=== PATIENT | female | born 1950 ===

== ENCOUNTER 2025-01-07 09:25 | Outpatient (REF) | payer MEDICARE, SELFPAY ==
--- OUTSIDE RECORDS SUMMARY | 2025-01-07 10:08 | XMS_ITS | Clinical Summary ---
Author Organization [facility] Address [address] [place] [address] Phone Care Team Providers Care Inside Finisher Name Role Phone George Flaherty MD Primary Care Provider Allergies Active Allergy Reactions Criticality Noted Date Comments Amoxicillin-Pot Clavulanate Diarrhea 10/07/19 21 Cephalexin Hives High 06/22/2021 Levofloxacin Itching High 06/18/2024 Medroxyprogesterone Wheezing 05/10/2022 Oxycodone-Acetaminophen Nausea And Vomiting 07/2021 Oxycodone-Aspirin Dizziness 10/07/2020 Penicillins Swelling,Rash High 05/18/2024 Sulfamethoxazole-Trimethoprim Anaphylaxis High 06/22 Medications nitrofurantoin (MACRODANTIN) 100 mg capsule Take 1 capsule (100 mg total) by mouth 1 (one) time each day. Active nitroglycerin (NITROSTAT) 0.[address] 1 tablet (0.4 mg total) under the tongue. 023 Active zinc gluconate 50 mg tablet Take 1 tablet (50 mg total) by mouth 1 (one) time each day. Active vit C/E/Zn/coppr/lute in/zeaxan (PRESERVISION AREDS-2 ORAL) Take 1 capsule by mouth 2 (two) times a day. Active ketoconazole (NIZORAL) 2 % cream 1 Application 1 (one) time each day if needed. 022 Active trospium (SANCTURA) 20 mg tablet Take 1 tablet (20 mg total) by mouth 2 (two) times a day. Active cholecalciferol, vitamin D3, (VITAMIN D3 ORAL) Take 25 mcg by mouth 1 (one) time each day. Active estradioL (ESTRACE) 0.01 % (0.1 mg/gram) vaginal cream 0.01 g 1 (one) time each day. Active loratadine (CLARITIN) 10 mg tablet Take 1 tablet (10 mg total) by mouth 1 (one) time each day. Take 1 Tablet by mouth daily. - Oral Active acetaminophen (TYLENOL) 500 mg tablet Take 2 tablets (1,000 mg total) by mouth every 8 (eight) hours. 42 tablet 024 Active metoprolol succinate (TOPROL-XL) 50 mg 24 hr tablet TAKE 1 TABLET BY MOUTH DAILY 90 tablet 1 025 Active atorvastatin (LIPITOR) 80 mg tablet Take 1 tablet (80 mg total) by mouth at bedtime. 90 tablet 025 Active amLODIPine (NORVASC) 5 mg tablet TAKE 1 TABLET BY MOUTH DAILY 90 tablet 1 025 Active EPINEPHrine (EpiPen 2-Romaine) 0.3 mg/0.3 mL injection Inject 0.3 mL (0.3 mg total) into the thigh if needed for anaphylaxis. 1 each 1 025 Active furosemide (LASIX) 20 mg tablet TAKE 1 TABLET BY MOUTH DAILY 90 tablet 1 025 Active potassium chloride (KLOR-CON M20) 20 mEq CR tablet TAKE 1 TABLET BY MOUTH DAILY 30 tablet 025 Active potassium chloride 20 mEq tablet extended release Take 1 mEq by mouth 1 (one) time each day. 023 2024 Discontinued furosemide (LASIX) 20 mg tablet Take 1 mg by mouth 1 (one) time each day. 024 2024 Discontinued meclizine (ANTIVERT) 12.5 mg tablet Take 1 Tablet by mouth 2 times daily as needed for Other. 023 2024 Discontinued psyllium (METAMUCIL) 3.4 gram packet Take by mouth. 2024 Discontinued EPINEPHrine (EpiPen 2-Romaine) 0.3 mg/0.3 mL injection Inject 0.3 mg into the muscle as needed. 021 2024 Discontinued(R eorder) sodium chloride (AYR) 0.65 % nasal drops Administer 2 drops into each nostril every 2 (two) hours if needed. 020 2024 Discontinued CRANBERRY ORAL Take 1 tablet by mouth 1 (one) time each day. 2024 Discontinued ondansetron ODT (ZOFRAN-ODT) 4 mg disintegrating tablet Dissolve 1 tablet (4 mg total) on top of the tongue every 8 (eight) hours if needed for nausea or vomiting. 14 tablet 024 2024 Discontinued pantoprazole (PROTONIX) 40 mg EC tablet TAKE 1 TABLET BY MOUTH TWICE DAILY 180 tablet 1 025 2024 Discontinued Active Problems Problem Noted Date Diagnosed Date Encounter for surgical after care following surgery of digestive system 08/21/2024 Encounter for change or removal of drains 2023 History of fall 08/21/2024 Personal history of urinary tract infection 07/27 S/P repair of paraesophageal hernia 07/02/2024 Bilateral carotid bruits 05/26/2024 Abnormal nuclear stress test 03/17/2024 Other chest pain 02/17/2024 Abnormal findings on diagnostic imaging of abdom en 10/18/2023 Chronic idiopathic constipation 10/18/2023 Mixed stress and urge urinary incontinence 05/13 Tachycardia 02/22/2023 Lymphedema 10/24/2021 Hypertension 07/04/2021 Overview (05/26/2024): Last Assessment & Plan: On the high end of normal, we are completing a 24-hour Holter monitor and may initiate a beta-yashira Aortic valve stenosis 01/05/2021 Overview (05/26/2024): Last Assessment & Plan: Only mild on echo. She believes her shortness of breath has improved. I did review signs of worsening stenosis and what to look for.We will update an echo around the 1 year annemarie. Atherosclerosis of [place] co ronary artery of [place] heart without angina pectoris 01/05/2021 Overview (05/26/2024): Last Assessment & Plan: Feeling well, her dyspnea has improved, no further interventions at this time. Continue ASA, CCB. She is updating labs as below, plan to initiate statin. Also may be starting BB as below. 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 [facility] Polysomnogram PAP treatment study. Date 12/28/2020. Wt 225#; BMI 43; SE 38 % SM 86 %; spent 19 % of the study in REM. On CPAP @ 8; RDI 3.8 (AHI 3.8), Central apneas 1; Obstructive apneas 0; Mixed apneas 0; hypopneas 6; RERAs 0; and, average oxygen saturation was 92%. For the entire study, PLMs ~0. 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 Back pain 08/10/2020 Bronchitis 08/10/2020 Dizziness 08/10/2020 Dyspnea on exertion 08/10/2020 Hiatal hernia with GERD 08/10/2020 Overview (12/10/2024): S/p repair in June 2024 Hyperlipidemia 08/10/2020 Overview (05/26/2024): Last Assessment & Plan: Update labs Migraine 08/10/2020 Morbid obesity due to excess calories ([facility] V24, [facility] V28) 08/10/2020 Resolved Problems Problem Noted Date Diagnosed Date Resolved Date Gastroesophageal reflux dise ase without esophagitis 08/21/2024 12/10/2024 Encounters Date Type Department Care Team Description 12/10/2024 1:00 PM EDT Office Visit Adult Medicine [address] [phone] George Flaherty MD Lymphedema (Primary Dx); Hiatal hernia with GERD; Hypertension, unspecified type; Morbid obesity due to excess calories ([facility] V24, [facility] V28); S/P repair of paraesophageal hernia; Atherosclerosis of [place] coronary artery of [place] heart without angina pectoris; Hyperlipidemia, unspecified hyperlipidemia type; Bilateral hearing loss, unspecified hearing loss type; Screening for diabetes mellitus (DM); Need for hepatitis C screening test 10/26/2024 Telephone [facility] Cardiology [facility] [address] [facility] [address] [place] [address] MD atorvastatin (LIPITOR) 80 mg tablet (atorvastatin (LIPITOR) 80 mg tablet ) 10/22/2024 Telephone [facility] - [facility] [address] [facility] [address] [place] [address] Michelle Voss MA Med Refill 10/20/2024 10:45 AM EST Office Visit General Surgery - [place] [address] [facility] [address] [place] [address] Eduardo Centeno MD Hiatal hernia with GERD (Primary Dx) from Last 3 Months Immunizations Name Administration Dates Next Due Influenza Quadravalent, MDCK , 0.5ml, preservative free (Flucelvax) 6mo and older 05/13/2023,05/10/2022 Pneumococcal conjugate 13 va lent (Prevnar 13, PCV13) 2mo and older 05/10/2020 Pneumococcal conjugate 20 va lent (Prevnar 20, PCV 20) 2mo and older 11/05/2023 Td Tetanus diptheria (Tdvax) 7yo and older 12/09 Surgical History Surgery Date Site/Laterality Comments HYSTERECTOMY TONSILLECTOMY CATARACT EXTRACTION Bilateral HERNIA REPAIR Medical History Medical History Date Comments Hyperlipidemia Hypertension Irregular heart beat Heart disease Angina pectoris ([facility] V24) Sleep apnea Dysphagia Hiatal hernia with GERD Diverticulosis Anemia History of transfusion Dizziness Neuromuscular disorder ([facility] V24, [facility] V28 ) Neuropathy Arthritis Joint pain Motion sickness Cancer ([facility] V24, [facility] V28) Uterine cancer ([facility] V24, [facility] V28) Macular degeneration disease Tinnitus of right ear Carotid artery disease ([facility] V24) RIGHT Arrhythmia Shortness of breath Dental disease Gastroesophageal reflux disease without esophagi tis 08/21/2024 Social History Tobacco Use Types Packs/Day Years Used Date Smoking Tobacco: Never Passive Smoke Exposure: Never Tobacco Cessation:Counseling Given: No Alcohol Use Standard Drinks/Week Comments Never 0 (1 standard drink = 0.6 oz pur e alcohol) Housing Instability Answer Date Recorde d Are you worried that in the next 2 months you may not have stable housing? No 12/07/2024 Food Access & Nutrition Answer Date Rec orded Do you have access to a vari ety of food including fruits and vegetables? Yes 12/07/2024 Access to Healthcare Answer Date Record ed Within the last 3 months, ho w many times did you visit the emergency department for your medical care? 0 12/07/2024 Health Literacy Answer Date Recorded How often do you need to hav e someone help you when you read instructions, pamphlets, or other written material from your doctor or pharmacy? Never 12/07/2024 Caregiver: How often do you need to have someone help you when you read instructions, pamphlets, or other written material from your doctor or pharmacy? Not on file 12/07/2024 Financial Risk Answer Date Recorded How hard is it for you to pa y for the very basics like food, housing, medical care, and air conditioning / heating? Hard 12/07/2024 Transportation Answer Date Recorded Has the lack of transportati on kept you from meetings, work, or from getting things needed for daily living? No Has the lack of transportati on kept you from medical appointments or from getting medications? No 12/07/2024 Social Isolation Answer Date Recorded How often do you feel lonely or isolated from th ose around you? Rarely 12/07/2024 Food Risk Answer Date Recorded Within the past 12 months we worried whether our food would run out before we got money to buy more. Never true 12/07/2024 Within the past 12 months th e food we bought just didn't last and we didn't have money to get more. Never true 12/07/2024 Dependent Care Answer Date Recorded Do you need help finding or paying for care for your loved ones. For example, children's service worker or elderly care for an older adult? No 12/07/2024 Education Answer Date Recorded Do you think completing more education or training, like finishing a GED, going to college, or learning a trade, would be helpful for you? N/A 12/07/2024 Employment and Income Answer Date Recor ded During the last four weeks, have you been actively looking for work? No 12/07/2024 Living Situation Answer Date Recorded What is your living situation? 0 12/07/2024 Interpersonal Safety Answer Date Record ed Physical Abuse 07/02/2024 Verbal Abuse 07/02/2024 Comments Unknown Sex and Gender Information Value Date Recorded Sex Assigned at Female 07/02/2024 11:06 AM EST Legal Sex Female 11:45 AM EST Gender Identity Female 07/02/2024 11:06 AM EST Sexual Orientation Straight 07/02/2024 11 :06 AM EST Obstetrics History Last Filed Vital Signs Vital Sign Reading Time Taken Comments Blood Pressure 128/82 12/10/2024 12:59 PM EDT Pulse 84 12/10/2024 12:59 PM EDT Temperature 36.9 ??C (98.4 ??F) 12/10/2024 12:59 PM E DT Respiratory Rate 17 07/04/2024 8:20 AM EST Oxygen Saturation 97% 12/10/2024 12:59 PM EDT Inhaled Oxygen Concentration - - Weight 102 kg (224 lb) 12/10/2024 12:59 PM EDT Height 147.3 cm (4' 10 ) 12/10/2024 12:59 PM EDT Body Mass Index 46.82 12/10/2024 12:59 PM EDT Plan of Treatment Upcoming Encounters Date Type Department Care Team (Late st Contact Info) Description 01/12/2025 3:00 PM EDT Office Visit Adult Medicine [facility] [address] [place] [phone] George Flaherty MD [address] [place] [address] 02/04/2025 10:00 AM EDT [facility] [address] [place] [phone] Robyn Treviño, OTR/L 05/28/2025 1:10 PM EDT Office Visit [facility] - [facility] [address] [facility] [address] [place] [phone] Karlie Rose NP [address] [facility] [address] [place] [address] 09/21/2025 10:15 AM EST Office Visit General Surgery - [place] [address] [phone] Eduardo Centeno MD 175 [facility] [address] [place] [address] Health Maintenance Due Date Last Done Comments Zoster Vaccines (1 of 2) 1998 COVID-19 Vaccine (3 - Moderna risk series) 12/18/2020 11/20/2020, 10/21/2020 Medicare Annual Wellness Visit 08/04/2022 Osteoporosis Screening (Bone Density Screening) 08/04/2022 RSV Immunization Adult Patients (1 - 1-dose 75+ series) 2023 Falls Risk Assessment 07/04/2025 07/04/2024 Depression Screening 12/07/2025 12/07/2024 Social Influencers of Health Screening 12/07/2025 12/07/2024 Hypertension/CHF/CAD Annual BMP Blood Test 01/05/2026 01/05/2025, 07/03/2024, 06/09/2024, Additional history exists Cholesterol Screening (Lipid Panel) 01/05/2030 01/05/2025, 05/15/2023 DTaP,Tdap,and Td Vaccines (2 - Td or Tdap) 12/09/2033 12/10/2023 Pneumococcal Vaccine: 50+ Years Completed 11/05/2023, 05/10/2020 Influenza Vaccine Completed 06/11/2024, , 05/10/2022, Additional history exists Hepatitis C Screening Completed 01/05/2025 HIB Vaccines Aged Out No longer eligi ble based on patient's age to complete this topic HPV Vaccines Aged Out No longer eligi ble based on patient's age to complete this topic Hepatitis A Vaccines Aged Out No long er eligible based on patient's age to complete this topic Hepatitis B Vaccines Aged Out No long er eligible based on patient's age to complete this topic IPV Vaccines Aged Out No longer eligi ble based on patient's age to complete this topic MMR Vaccines Aged Out No longer eligi ble based on patient's age to complete this topic Meningococcal ACWY Vaccine Aged Out N o longer eligible based on patient's age to complete this topic Meningococcal B Vaccine Aged Out No l onger eligible based on patient's age to complete this topic RSV Immunization Patients Under 20 months Aged Out No longer eligible based on patient's age to complete this topic Varicella Vaccines Aged Out No longer eligible based on patient's age to complete this topic Medical Devices Implanted Type Area [employer] Device Identifier Shelf Expiration Date Model / Serial / Lot Tissue Reinf Bio-A Abs 7x10cm - [id number] - [id number] Implanted:Qty: 1 on 07/02/2024 by Eduardo Centeno MD at [facility] Surgical Mesh Sling Implants N/A: Abdomen [employer] 2026 [id number] / [id number] / N/A Procedures Procedure Name Priority Date/Time Associated Diagnosis Comments CBC WITH AUTO DIFFERENTIAL Routine 01/05/2025 10:02 AM EDT Hypertension, unspecified type URINALYSIS MICROSCOPIC ONLY Routine 01/05/2025 10:02 AM EDT Urinary tract infection, site not specified CBC AND DIFFERENTIAL Routine 01/05/2025 10:02 AM EDT Hypertension, unspecified type COMPREHENSIVE METABOLIC PANEL Routine 01/05/2025 10:02 AM EDT Hypertension, unspecified type HEMOGLOBIN A1C Routine 01/05/2025 10:02 AM EDT Screening for diabetes mellitus (DM) LIPID PANEL WITH REFLEX TO DIRECT LDL Routine 01/05/2025 10:02 AM EDT Hypertension, unspecified type URINALYSIS MICROSCOPIC ONLY Routine 01/05/2025 10:02 AM EDT Urinary tract infection, site not specified HEPATITIS C ANTIBODY Routine 01/05/2025 10:02 AM EDT Need for hepatitis C screening test CULTURE URINE Routine 01/05/2025 10:02 AM EDT Urinary tract infection, site not specified from Last 3 Months Results * (ABNORMAL) Urinalysis microscopic only (01/05/2025 10:02 AM EDT) RBC, Urine 3 0 - 4 /HPF LAB URINALYSIS - AUTOMATED METHOD 01/05/2025 1:43 PM EDT [facility] WBC, Urine 184.1(H) 0 - 4 /HPF LAB URINALYSIS - AUTOMATED METHOD 01/05/2025 1:43 PM EDT [facility] Squamous Epithelial, Urine 25 0 - 60 /LPF LAB URINALYSIS - AUTOMATED METHOD 01/05/2025 1:43 PM EDT [facility] Bacteria, Urine Moderate( A) Negative /HPF LAB URINALYSIS - AUTOMATED METHOD 01/05/2025 1:43 PM EDT [facility] Hyaline Casts, Urine 0.0 0 - 3 /LPF LAB URINALYSIS - AUTOMATED METHOD 01/05/2025 1:43 PM EDT [facility] Urine Urine specimen obtained by clean catch procedure / Unknown Non-blood Collection / Unknown 01/05/2025 10:02 AM EDT 01/05/2025 10:02 AM EDT us Nik Troncoso MD LAB URINE ORDERABLES Petty ren Result [facility] [address] [place] [address], * Hepatitis C antibody (01/05/2025 10:02 AM EDT) Hepatitis C Antibody Negative Negative LAB CHEMISTRY METHOD 01/05/2025 3:48 PM EDT [facility] Blood Venous blood specimen / Unknown Venipuncture / Unknown 01/05/2025 10:02 AM EDT 01/05/2025 10:02 AM EDT us George Flaherty MD LAB BLOOD ORDERABLES F inal Result [facility] [address] [place] [address], [place] [phone] * Lipid panel with reflex to direct LDL (01/05/2025 10:02 AM EDT) Cholesterol 123 0 - 200 mg/dL LAB CHEMISTRY METHOD 01/05/2025 1:47 PM EDT [facility] Triglycerides 149 0 - 150 mg/dL LAB CHEMISTRY METHOD 01/05/2025 1:47 PM EDT [facility] HDL 58 >=40 mg/dL LAB CHEMISTRY METHOD 01/05/2025 1:47 PM EDT [facility] LDL Calculated 35 0 - 100 mg/dL LAB CHEMISTRY METHOD 01/05/2025 1:47 PM EDT [facility] VLDL Cholesterol Reji 29.8 mg/dL LAB CHEMISTRY METHOD 01/05/2025 1:47 PM EDT [facility] Non HDL Chol. (LDL+VLDL) 65 <145 mg/dL LAB CHEMISTRY METHOD 01/05/2025 1:47 PM EDT [facility] Chol/HDL Ratio 2.1 0.0 - 4.4 LAB CHEMISTRY METHOD 01/05/2025 1:47 PM EDT [facility] Blood Venous blood specimen / Unknown Venipuncture / Unknown 01/05/2025 10:02 AM EDT 01/05/2025 10:02 AM EDT us George Flhaerty MD LAB BLOOD ORDERABLES F inal Result [facility] [address] [place] [address], * CBC auto differential (01/05/2025 10:02 AM EDT) [facility] WBC 9.5 4.8 - 10.8 K/mcL LAB HEMETOLOGY METHOD 01/05/2025 12:44 PM EDT [facility] RBC 4.20 3.80 - 4.80 M/mcL LAB HEMETOLOGY METHOD 01/05/2025 12:44 PM EDT [facility] Hemoglobin 13.3 11.5 - 16.0 g/dL LAB HEMETOLOGY METHOD 01/05/2025 12:44 PM EDT [facility] Hematocrit 40.0 35.0 - 47.0 % LAB HEMETOLOGY METHOD 01/05/2025 12:44 PM EDT [facility] MCV 95.7 79.0 - 98.0 FL LAB HEMETOLOGY METHOD 01/05/2025 12:44 PM EDT [facility] MCH 31.8 27.0 - 32.0 pcg LAB HEMETOLOGY METHOD 01/05/2025 12:44 PM EDT [facility] MCHC 33.3 32.0 - 37.0 g/dL LAB HEMETOLOGY METHOD 01/05/2025 12:44 PM EDT [facility] RDW 13.1 11.0 - 15.0 % LAB HEMETOLOGY METHOD 01/05/2025 12:44 PM EDT [facility] Platelets 277 130 - 400 K/mcL LAB HEMETOLOGY METHOD 01/05/2025 12:44 PM EDT [facility] MPV 8.5 7.0 - 11.0 FL LAB HEMETOLOGY METHOD 01/05/2025 12:44 PM EDT [facility] NRBC 0.0 <1.0 % LAB HEMETOLOGY METHOD 01/05/2025 12:44 PM EDT [facility] NRBC Absolute 0.00 <0.10 K/mcL LAB HEMETOLOGY METHOD 01/05/2025 12:44 PM [facility] Neutrophils Relative 61.2 % LAB HEMETOLOGY METHOD 01/05/2025 12:44 PM [facility] Lymphocytes Relative 27.0 % LAB HEMETOLOGY METHOD [facility]/05[facility]25 12:[facility] Monocytes Relative 7.6 % LAB HEMETOLOGY METHOD 01/05/2025 12:44 PM [facility] Eosinophils Relative 3.2 % LAB HEMETOLOGY METHOD 01/05/2025 12:44 PM [facility] Basophils Relative 0.7 % LAB HEMETOLOGY METHOD 01/05/2025 12:44 PM [facility] Immature Granulocytes Relative 0.3 % LAB HEMETOLOGY METHOD 01/05/2025 12:44 PM [facility] Neutrophils Absolute 5.79 1.50 - 7.00 K/mcL LAB HEMETOLOGY METHOD 01/05/2025 12:44 PM [facility] Lymphocytes Absolute 2.56 1.00 - 5.00 K/mcL LAB HEMETOLOGY METHOD 01/05/2025 12:44 PM [facility] Monocytes Absolute 0.72 0.20 - 1.00 K/mcL LAB HEMETOLOGY METHOD 01/05/2025 12:44 PM [facility] Eosinophils Absolute 0.30 0.00 - 0.50 K/mcL LAB HEMETOLOGY METHOD 01/05/2025 12:44 PM [facility] Basophils Absolute 0.07 0.00 - 0.20 K/mcL LAB HEMETOLOGY METHOD 01/05/2025 12:44 PM [facility] Immature Granulocytes Absolute 0.03 0.00 - 0.03 K/mcL LAB HEMETOLOGY METHOD 01/05/2025 12:44 PM EDT [facility] Blood Venous blood specimen / Unknown Venipuncture / Unknown 01/05/2025 10:02 AM EDT 01/05/2025 10:02 AM EDT us George Flaherty MD LAB BLOOD ORDERABLES F inal Result Performing Organization Address [facility]/ZIP Co de Phone Number [facility] [address] [place] [address], [place] [phone] * Hemoglobin A1c (01/05/2025 10:02 AM EDT) Hemoglobin A1C 4.8 <6.5 % LAB CHEMISTRY METHOD 01/05/2025 10:19 PM EDT [facility] Mean Bld Glu Estim. 91 mg/dL LAB CHEMISTRY METHOD 01/05/2025 10:19 PM EDT [facility] Blood Venous blood specimen / Unknown Venipuncture / Unknown 01/05/2025 10:02 AM EDT 01/05/2025 10:02 AM EDT us George Flaherty MD LAB BLOOD ORDERABLES F inal Result Performing Organization Address City/[facility]/ZIP Co de Phone Number [facility] [address] [place] [address], [place] [phone] * (ABNORMAL) Comprehensive metabolic panel (01/05/2025 10:02 AM EDT) Sodium 137 133 - 145 mmol/L LAB CHEMISTRY METHOD 01/05/2025 1:40 PM EDT [facility] Potassium 4.4 3.5 - 5.5 mmol/L LAB CHEMISTRY METHOD 01/05/2025 1:40 PM EDT [facility] Chloride 105 96 - 110 mmol/L LAB CHEMISTRY METHOD 01/05/2025 1:40 PM [facility] CO2 26 21 - 32 mmol/L LAB CHEMISTRY METHOD 01/05/2025 1:40 PM [facility] Anion Gap 6 3 - 11 LAB CHEMISTRY METHOD 01/05/2025 1:40 PM [facility] Glucose 117(H) 70 - 100 mg/dL LAB CHEMISTRY METHOD 01/05/2025 1:40 PM [facility] BUN 19 5 - 25 mg/dL LAB CHEMISTRY METHOD 01/05/2025 1:40 PM [facility] Creatinine 0.87 0.50 - 1.10 mg/dL LAB CHEMISTRY METHOD 01/05/2025 1:40 PM [facility] eGFR 69 >=60 mL/min/1. 73m2 LAB CHEMISTRY METHOD 01/05/2025 1:40 PM [facility] Comment:Calculation based on the Chronic Kidney Disease Epidemiology Collaboration (CKD-EPI) equation refit without adjustment for race. BUN/Creatinine Ratio 21.8 LAB CHEMISTRY METHOD 01/05/2025 1:40 PM [facility] Calcium 8.9 8.5 - 10.5 mg/dL LAB CHEMISTRY METHOD 01/05/2025 1:40 PM [facility] AST (SGOT) 15 10 - 42 unit/L LAB CHEMISTRY METHOD 01/05/2025 1:40 PM [facility] ALT (SGPT) 19 10 - 60 unit/L LAB CHEMISTRY METHOD 01/05/2025 1:40 PM [facility] Alkaline Phosphatase 67 42 - 121 unit/L LAB CHEMISTRY METHOD 01/05/2025 1:40 PM [facility] Total Protein 7.6 6.0 - 8.0 g/dL LAB CHEMISTRY METHOD 01/05/2025 1:40 PM [facility] Albumin 3.9 3.2 - 5.0 g/dL LAB CHEMISTRY METHOD 01/05/2025 1:40 PM EDT [facility] Total Bilirubin 0.8 0.0 - 1.4 mg/dL LAB CHEMISTRY METHOD 01/05/2025 1:40 PM EDT [facility] Blood Venous blood specimen / Unknown Venipuncture / Unknown 01/05/2025 10:02 AM EDT 01/05/2025 10:02 AM EDT us George Flaherty MD LAB BLOOD ORDERABLES F inal Result [facility] ([facility]) [facility] [address] [place] [address], [place] [phone] from Last 3 Months Insurance [employer] Advance Directives Documents on File Type Date Recorded 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 Health Care Decision (hx) 11/10/2014 AD BATISTA DIRECTIVE Health Care Decision (hx) 11/10/2014 AD BATISTA DIRECTIVE Health Care Decision (hx) 11/10/2014 AD BATISTA DIRECTIVE Health Care Decision (hx) 11/10/2014 AD BATISTA DIRECTIVE Health Care Decision (hx) 11/10/2014 AD BATISTA DIRECTIVE Health Care Decision (hx) 11/10/2014 AD BATISTA DIRECTIVE Health Care Decision (hx) 11/10/2014 AD BATISTA DIRECTIVE Health Care Decision (hx) 11/10/2014 AD BATISTA DIRECTIVE Health Care Decision (hx) 11/10/2014 AD BATISTA DIRECTIVE Health Care Decision (hx) 11/10/2014 AD BATISTA DIRECTIVE Health Care Decision (hx) 11/10/2014 AD BATISTA DIRECTIVE Health Care Decision (hx) 11/10/2014 AD BATISTA DIRECTIVE Health Care Decision (hx) 11/10/2014 AD BATISTA DIRECTIVE Health Care Decision (hx) 11/10/2014 AD BATISTA DIRECTIVE Health Care Decision (hx) 11/10/2014 AD BATISTA DIRECTIVE Health Care Decision (hx) 11/10/2014 AD BATISTA DIRECTIVE * Full Code - Default (Latest Code Status on File) Date Activated Date Inactivated Comments 07/02/2024 4:46 PM 07/04/2024 5:29 PM This is orde r is used when code status has not been discussed with the patient, or code status is otherwise unknown/unconfirmed To update the patient's code status, place a code status order. Do not modify or discontinue any currently active code status orders. * Full Code - Default Date Activated Date Inactivated Comments 07/02/2024 11:22 AM 07/02/2024 4:46 PM This is ord er is used when code status has not been discussed with the patient, or code status is otherwise unknown/unconfirmed To update the patient's code status, place a code status order. Do not modify or discontinue any currently active code status orders. Care Teams Inside Finisher Relationship Specialty Start Date End Date George Flaherty MD [address] [place] [address] PCP - General 09/20/23
== END 2025-01-07 09:26 | disposition home or self-care (01) ==
LOC: HO.SH 09:25
PROVIDERS: Visit Provider Internal Medicine
DX: Z01.118 Encounter for examination of ears and hearing with other abnormal findings (principal); H90.3 Sensorineural hearing loss, bilateral
CPT/HCPCS: 92557; 92567